=== PATIENT | male | born 1965 | race Two or more races ===

== ENCOUNTER 2025-04-22 12:29 | Emergency (ER) | payer MEDICAID, OTHER ==
[~2025-04-22] VITALS: Ht 180.3 cm; Wt 106.6 kg
[2025-04-22 12:41] VITALS: BP 168/94; TEMP 98.2; O2SAT 95
[2025-04-22] MEDS ORDERED: DOXY100C2 PO (12:51)
[2025-04-22] MEDS ORDERED: CEPH-570 PO (12:51)
[2025-04-22] MEDS ORDERED: KETOROLAC TROMETHAMINE 15 MG/ML VIAL ONE (12:58)
[2025-04-22] MEDS: KETOROLAC TROMETHAMINE 15 MG/ML VIAL IM ONE (13:00)
== END 2025-04-22 13:03 | disposition home or self-care (01) ==
LOC: ER 12:37
DX: L73.8 Other specified follicular disorders (principal); L03.114 Cellulitis of left upper limb; I10 Essential (primary) hypertension; F17.200 Nicotine dependence, unspecified, uncomplicated; I25.2 Old myocardial infarction
CPT/HCPCS: 99283; 96372; J1885